=== PATIENT | male | born 1965 | race Caucasian/White ===

== ENCOUNTER 2021-05-02 09:01 | Inpatient (IN) | payer MEDICARE ==
[2021-05-02] MEDS ORDERED: Sodium Chloride 0.9% 1,000 ML IV ONE (09:21)
[2021-05-02] MEDS ORDERED: Diltiazem 50 MG/10 ML SDV IVPUSH ONE (10:13)
[2021-05-02] MEDS ORDERED: Iopamidol 755 Mg/ML 100 ML Bottle IVPUSH ONE (10:35)
[2021-05-02] MEDS: Furosemide 20 MG/2 ML VIAL IVPUSH ONE ×2 (10:37→10:45)
[2021-05-02] MEDS: Diltiazem 100 MG in Sodium Chloride 0.9% 100 ML IV SCH ×3 (10:41→22:18)
[2021-05-02] MEDS ORDERED: Sodium Chloride 0.9% 100 ML IV SCH (10:45)
[2021-05-02] MEDS: Sodium Chloride 0.9% 10 ML Syringe FLUSH PRN (11:04)
[2021-05-02] MEDS ORDERED: Furosemide 40 MG/4 ML VIAL IVPUSH ONE (12:03)
[2021-05-02] MEDS ORDERED: REMDESIVIR 200 MG in Sodium Chloride 0.9% 250 ML IV ONE (12:06)
[2021-05-02] MEDS ORDERED: Acetaminophen 325 MG Tab PO PRN (12:32)
[2021-05-02] MEDS ORDERED: Pantoprazole 40 MG Vial ONE (12:32)
[2021-05-02] MEDS ORDERED: Ondansetron 8 MG in Sodium Chloride 0.9% 50 ML IV PRN (12:32)
[2021-05-02] MEDS: Dexamethasone 6 MG TABLET PO SCH (14:47)
[2021-05-02] MEDS: Azithromycin 500 MG in Sodium Chloride 0.9% 250 ML IV SCH (14:48)
[2021-05-02] MEDS: cefTRIAXone 2 GM in Sodium Chloride 0.9% 100 ML IV SCH (14:49)
[2021-05-02] MEDS ORDERED: Sodium Chloride 0.9% 1,000 ML IV SCH (20:30)
[2021-05-03] MEDS ORDERED: traZODone 50 MG Tab PO ONE ×2 (00:03→20:13)
[2021-05-03] MEDS: Diltiazem 100 MG in Sodium Chloride 0.9% 100 ML IV SCH (05:23)
[2021-05-03] MEDS: Dexamethasone 6 MG TABLET PO SCH (10:25)
[2021-05-03] MEDS: Enoxaparin 40 MG/0.4 ML Syringe SUBCUT SCH (10:25)
[2021-05-03] MEDS: cefTRIAXone 2 GM in Sodium Chloride 0.9% 100 ML IV SCH (13:15)
[2021-05-03] MEDS: Sodium Chloride 0.9% 10 ML Syringe FLUSH PRN (13:31)
[2021-05-03] MEDS: Azithromycin 500 MG in Sodium Chloride 0.9% 250 ML IV SCH (13:47)
[2021-05-03] MEDS: REMDESIVIR 100 MG in Sodium Chloride 0.9% 250 ML IV SCH (14:50)
[2021-05-03] MEDS ORDERED: Labetalol 100 MG in Sodium Chloride 0.9% 80 ML IV SCH (17:00)
[2021-05-04] MEDS: Dexamethasone 6 MG TABLET PO SCH (08:41)
[2021-05-04] MEDS: Enoxaparin 40 MG/0.4 ML Syringe SUBCUT SCH (08:41)
[2021-05-04] MEDS: cefTRIAXone 2 GM in Sodium Chloride 0.9% 100 ML IV SCH (13:53)
[2021-05-04] MEDS: Azithromycin 500 MG in Sodium Chloride 0.9% 250 ML IV SCH (13:57)
[2021-05-04] MEDS: REMDESIVIR 100 MG in Sodium Chloride 0.9% 250 ML IV SCH (14:35)
[2021-05-04] MEDS: LORazepam 2 MG/ML SDV IVPUSH PRN ×2 (17:05→23:51)
[2021-05-04] MEDS: Sodium Chloride 0.9% 10 ML Syringe FLUSH PRN (17:09)
[2021-05-04] MEDS ORDERED: Insulin Regular, Human 100 Units/ML 3 ML Vial SUBCUT ONE (17:42)
[2021-05-04] MEDS: Insulin Regular, Human 100 Units/ML 3 ML Vial SUBCUT SCH (18:33)
[2021-05-04] MEDS: Insulin Glargine,Human Rec. Analog 100 Units/ML 3 ML Pen SUBCUT SCH (20:32)
[2021-05-04] MEDS: traZODone 50 MG Tab PO PRN (21:36)
[2021-05-04] MEDS: Benzonatate 100 MG Cap PO SCH (21:36)
[2021-05-05] MEDS: LORazepam 2 MG/ML SDV IVPUSH PRN (03:02)
[2021-05-05] MEDS: Dexamethasone 6 MG TABLET PO SCH (09:14)
[2021-05-05] MEDS: Benzonatate 100 MG Cap PO SCH ×3 (09:14→21:26)
[2021-05-05] MEDS: Enoxaparin 40 MG/0.4 ML Syringe SUBCUT SCH (09:14)
[2021-05-05] MEDS: Insulin Regular, Human 100 Units/ML 3 ML Vial SUBCUT SCH ×4 (09:15→21:29)
[2021-05-05] MEDS: Diltiazem 180 MG Cap.CD PO SCH (11:44)
[2021-05-05] MEDS: cefTRIAXone 2 GM in Sodium Chloride 0.9% 100 ML IV SCH (11:44)
[2021-05-05] MEDS: REMDESIVIR 100 MG in Sodium Chloride 0.9% 250 ML IV SCH (13:16)
[2021-05-05] MEDS: Insulin Glargine,Human Rec. Analog 100 Units/ML 3 ML Pen SUBCUT SCH (21:31)
[2021-05-06] MEDS: traZODone 50 MG Tab PO PRN ×2 (00:55→21:57)
[2021-05-06] MEDS: Diltiazem 180 MG Cap.CD PO SCH (08:52)
[2021-05-06] MEDS: Benzonatate 100 MG Cap PO SCH ×3 (08:53→21:56)
[2021-05-06] MEDS: Enoxaparin 40 MG/0.4 ML Syringe SUBCUT SCH (08:54)
[2021-05-06] MEDS: Insulin Regular, Human 100 Units/ML 3 ML Vial SUBCUT SCH ×4 (08:55→21:53)
[2021-05-06] MEDS: cefTRIAXone 2 GM in Sodium Chloride 0.9% 100 ML IV SCH (12:27)
[2021-05-06] MEDS: REMDESIVIR 100 MG in Sodium Chloride 0.9% 250 ML IV SCH (13:05)
[2021-05-06] MEDS: Insulin Glargine,Human Rec. Analog 100 Units/ML 3 ML Pen SUBCUT SCH (21:55)
[2021-05-06] MEDS: Sacubitril/Valsartan 1 EACH Tablet PO SCH (21:56)
[2021-05-06] MEDS: Apixaban 5 MG Tab PO SCH (21:56)
[2021-05-07] MEDS: Insulin Regular, Human 100 Units/ML 3 ML Vial SUBCUT SCH ×4 (08:13→20:18)
[2021-05-07] MEDS: Sacubitril/Valsartan 1 EACH Tablet PO SCH ×2 (08:13→21:33)
[2021-05-07] MEDS: Diltiazem 180 MG Cap.CD PO SCH (08:14)
[2021-05-07] MEDS: Apixaban 5 MG Tab PO SCH ×2 (08:14→21:31)
[2021-05-07] MEDS: Benzonatate 100 MG Cap PO SCH ×3 (08:14→21:31)
[2021-05-07] MEDS ORDERED: Digoxin 250 MCG Tab PO ONE ×3 (12:00→20:00)
[2021-05-07] MEDS: Insulin Glargine,Human Rec. Analog 100 Units/ML 3 ML Pen SUBCUT SCH (20:17)
[2021-05-07] MEDS: Metoprolol Succinate 25 MG Tab.ER PO SCH (21:31)
[2021-05-07 21:34] VITALS: PULSE 92
[2021-05-08] MEDS: Sacubitril/Valsartan 1 EACH Tablet PO SCH (08:07)
[2021-05-08] MEDS: Apixaban 5 MG Tab PO SCH (08:07)
[2021-05-08] MEDS: Benzonatate 100 MG Cap PO SCH (08:08)
[2021-05-08] MEDS: Metoprolol Succinate 25 MG Tab.ER PO SCH (08:09)
[2021-05-08] MEDS: Insulin Regular, Human 100 Units/ML 3 ML Vial SUBCUT SCH ×2 (08:10→12:18)
[2021-05-08] MEDS ORDERED: Digoxin 125 MCG Tab PO SCH (09:00)
[2021-05-08] MEDS ORDERED: Sacubitril/Valsartan 1 EACH Tablet PO STA (09:11)
[2021-05-08 12:21] VITALS: BP 128/99
[2021-05-08] MEDS ORDERED: Sacubitril/Valsartan 1 EACH Tablet PO SCH (21:00)
== END 2021-05-08 15:30 | disposition home or self-care (01) | DRG 177 ==
LOC: JD.ED 09:01 → JD.ICU 12:32
PROVIDERS: ADMIT Pediatrics; ATTEND Pediatrics
PROC: 8E0ZXY6 Isolation (ICD-10-PCS; principal; 2021-05-02)
PROC: XW033E5 Introduction of Remdesivir Anti-infective into Peripheral Vein, Percutaneous Approach, New Technology Group 5 (ICD-10-PCS; 2021-05-02)
PROC: 3E0333Z Introduction of Anti-inflammatory into Peripheral Vein, Percutaneous Approach (ICD-10-PCS; 2021-05-02)
DX: U07.1 COVID-19 (principal); J12.82 Pneumonia due to coronavirus disease 2019; R62.50 Unspecified lack of expected normal physiological development in childhood; I48.91 Unspecified atrial fibrillation; I50.9 Heart failure, unspecified; E11.9 Type 2 diabetes mellitus without complications; Z79.01 Long term (current) use of anticoagulants; F10.20 Alcohol dependence, uncomplicated
CPT/HCPCS: 36415; 71045; 71275; 80053; 81001; 83735; 83880; 84484; 85025; 85379; 85610; 93005; 96365; 96375; 99285; J1940 ×2; J3490; J7030; Q9967; U0002; 71046; 71046-26; 82947; 83036; 84443; 85652; 86140; 87040; 93010; 93306; A9270-GY; C9113; J0248; J0282; J0456; J0696; J1650; J1815-GY; J2060; J7050; J8540